=== PATIENT | female | born 1975 | race African-American/Black ===

== ENCOUNTER 2017-07-25 07:56 | Emergency (ER) | payer OTHER ==
[~2017-07-25] VITALS: Ht 175.3 cm; Wt 72.6 kg
[2017-07-25 08:29] VITALS: BP 122/82
[2017-07-25] MEDS ORDERED: KETOROLAC TROMETH 60MG/2ML VIAL IM ONE (08:45)
[2017-07-25 12:37] LABS: Urine Bilirubin Negative (Negative); Urine Blood 3+ /uL (Negative); Urine Color PINK (Yellow); Urine Glucose Normal (Normal); Urine Ketone 2+ (Negative); Urine Mucus FEW (None Seen); Urine Nitrite POSITIVE (Negative); Urine RBC 467 /hpf (0 - 4); Urine Squamous Epithelial Cell FEW /hpf (<5); Urine Urobilinogen Normal (Negative)
== END 2017-07-25 12:28 | disposition home or self-care (01) ==
LOC: ER 07:56 → EDBD 07:56 → ER 12:28
DX: N39.0 Urinary tract infection, site not specified (principal); N83.209 Unspecified ovarian cyst, unspecified side; Z88.6 Allergy status to analgesic agent
CPT/HCPCS: 76830; 76856; 81001; 96372; 99285; J1885